=== PATIENT | female | born 1975 | race Caucasian/White ===

== ENCOUNTER → 2017-02-21 | Outpatient (CLI) | payer BC ==
[2006-08-13 08:03] VITALS: PULSE 78; TEMP 98.2
== END ==
LOC: MC.RAD 07:20
DX: Z12.31 Encounter for screening mammogram for malignant neoplasm of breast (principal)

== ENCOUNTER → 2018-03-19 | Outpatient (CLI) | payer BC ==
[2006-08-13 08:03] VITALS: PULSE 78; TEMP 98.2
== END ==
LOC: MC.RAD 11:02
DX: Z12.31 Encounter for screening mammogram for malignant neoplasm of breast (principal)